=== PATIENT | female | born 1995 | race American Indian/Alaskan Native ===

== ENCOUNTER 2021-02-17 13:28 | Emergency (ER) | payer OTHER ==
[2021-02-17] MEDS ORDERED: Ondansetron 4 MG/2 ML SDV IVPUSH ONE (15:09)
[2021-02-17] MEDS ORDERED: Ketorolac 30 MG/ML SDV IVPUSH ONE (15:09)
[2021-02-17] MEDS ORDERED: cefTRIAXone 2 GM Vial IVPUSH ONE (15:09)
[2021-02-17] MEDS ORDERED: Iopamidol 755 Mg/ML 100 ML Bottle IV ONE (15:14)
--- NOTE | 2021-02-17 15:17 | EDM.PDOC ---
ED HPI GENERAL MEDICAL PROBLEM - General Chief Complaint: Abdominal Pain Stated Complaint: LOWER R ABD PAIN Time Seen by Provider: 02/17/21 13:30 Source of Information: Reports: Patient History Limitations: Reports: No Limitations - History of Present Illness INITIAL COMMENTS - FREE TEXT/NARRATIVE: c/o pain and R flank and RUQ x 36h pt with nagging pain that began after eating pizza for supper 2 nights ago initial in RLQ, then moved to RUQ yesterday, then with N today, did have V at midnight pain not severe, APAP did not help no freq, no dysuria no f/c/d ate pizza again last night which pt thought may have helped the pain had a moderate loose 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 2x, has 1 yo child and a SAB in 2017 had BC implant in LUE but had irreg menses and had it removed 6m ago, has begin monthly menses x 6m altho she is 1 wk late now no regular meds SH: does not work outside house Right Upper Abdomen Pain Score (Numeric/FACES): 6 - Related Data Allergies Allergy/AdvReac Type Severity Reaction Status Date / Time No Known Allergies Allergy Verified 02/17/21 13:42 Home Meds: Home Meds Ciprofloxacin HCl [Cipro] 500 mg PO BID #14 tablet 02/17/21 [Rx] Multivitamin 1 tab PO DAILY 02/17/21 [History] Past Medical History - Past Health History Medical/Surgical History: Denies Medical/Surgical History 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 Constitutional: Reports: Decreased Appetite. Denies: Fever, Chills HEENT: Reports: No Symptoms Respiratory: Reports: No Symptoms. Denies: Shortness of Breath, Cough Cardiovascular: Reports: No Symptoms Endocrine: Reports: No Symptoms GI/Abdominal: Reports: Abdominal Pain, Nausea, Vomiting : Reports: No Symptoms Musculoskeletal: Reports: No Symptoms Skin: Reports: No Symptoms Neurological: Reports: No Symptoms Psychiatric: Reports: No Symptoms Hematologic/Lymphatic: Reports: No Symptoms Immunologic: Reports: No Symptoms ED EXAM, GI/ABD - Physical Exam Exam: See Below Exam Limited By: No Limitations General Appearance: Alert, WD/WN, No Apparent Distress, Other (moves easily, resting on bed) Ears: Normal Canal, Hearing Grossly Normal Nose: Normal Inspection Throat/Mouth: Normal Inspection, Normal Lips, Normal Teeth Head: Atraumatic, Normocephalic Neck: Normal Inspection, Non-Tender. No: Lymphadenopathy (R), Lymphadenopathy (L) Respiratory/Chest: No Respiratory Distress, Lungs Clear, Normal Breath Sounds, Chest Non-Tender Cardiovascular: Regular Rate, Rhythm, No Edema, No Murmur GI/Abdominal Exam: Soft, No Distention, Other (mild tender along R colon and R lateral half of transverse colon, does not appear to have inc'd tender localized epigastrium/Morgan's point/flank/RLQ, no stool palpable, NT on L abd and suprapubic area, no CVAT, nl BS x 4, very soft) Back Exam: Normal Inspection, Full Range of Motion. No: CVA Tenderness (R), CVA Tenderness (L) Extremities: Non-Tender, No Pedal Edema Neurological: Alert, Oriented, CN II-XII Intact, Normal Cognition, No Motor/Sensory Deficits Psychiatric: Normal Affect, Normal Mood Skin Exam: Warm, Dry, Intact, Normal Color, No Rash Lymphatic: No Adenopathy Course - Vital Signs Last Recorded V/S: Last Vital Signs Temp 36.6 C 02/17/21 13:28 Pulse 84 02/17/21 16:00 Resp 20 02/17/21 16:00 BP 139/115 H 02/17/21 16:00 Pulse Ox 97 02/17/21 16:00 - Orders/Labs/Meds Orders: Active Orders 24 hr Category Date Time Status Abdomen Pelvis w Cont [CT] Stat Exams 02/17/21 15:09 Taken CULTURE URINE [RM] Stat Lab 02/17/21 13:43 Received Labs: Laboratory Tests 02/17/21 02/17/21 02/17/21 Range/Units 13:43 13:43 14:30 WBC 13.0 H (3.0-10.3) x10-3/uL RBC 4.55 (3.60-5.20) x10(6)uL Hgb 13.9 (11.4-15.5) g/dL Hct 42.0 (34.2-48.2) % MCV 92.5 (76.7-100.5) fL MCH 30.5 (23.9-33.9) pg MCHC 33.0 (31.9-34.8) g/dL RDW 12.9 (12.3-16.5) % Plt Count 428 (151-488) x10(3)uL MPV 7.9 (7.1-12.4) fL Neut % (Auto) 76.3 H (30.8-76.2) % Lymph % (Auto) 17.3 L (18.4-52.1) % [place] % (Auto) 5.2 (4.4-15.7) % Eos % (Auto) 0.5 L (0.6-8.1) % Baso % (Auto) 0.7 (0.2-1.5) % Neut # (Auto) 9.9 H (1.5-6.3) x10-3/uL Lymph # (Auto) 2.2 (1.0-4.4) x10-3/uL [place] # (Auto) 0.7 (0.3-1.0) x10-3/uL Eos # (Auto) 0.1 (0.0-0.8) x10-3/uL Baso # (Auto) 0.1 (0.0-0.1) x10-3/uL Sodium (135-145) mmol/L Potassium (3.5-5.3) mmol/L Chloride (100-110) mmol/L Carbon Dioxide (21-32) mmol/L BUN (7-18) mg/dL Creatinine (0.55-1.02) mg/dL Est Cr Clr Drug Dosing mL/min Estimated GFR (MDRD) (>60) BUN/Creatinine Ratio (9-20) Glucose (80-116) mg/dL Calcium (8.6-10.2) mg/dL Total Bilirubin (0.1-1.3) mg/dL AST (5-25) IU/L ALT (12-36) U/L Alkaline Phosphatase (56-112) IU/L C-Reactive Protein (0.5-0.9) mg/dL Total Protein (6.0-8.0) g/dL Albumin (3.5-5.2) g/dL Globulin g/dL Albumin/Globulin Ratio Urine Color Yellow (YELLOW) Urine Appearance Slightly cloudy (CLEAR) Urine pH 5.0 (5.0-6.5) Ur Specific [place] 1.020 (1.010-1.025) Urine Protein 30 H (NEGATIVE) mg/dL Urine Glucose (UA) Normal (NORMAL) mg/dL Urine Ketones Negative (NEGATIVE) mg/dL Urine Occult Blood Large H (NEGATIVE) Urine Nitrite Negative (NEGATIVE) Urine Bilirubin Negative (NEGATIVE) Urine Urobilinogen Normal (NEGATIVE) mg/dL Ur Leukocyte Esterase Small H (NEGATIVE) Urine RBC 30-40 H (0-5) Urine WBC 10-20 H (0-5) Ur Squamous Epith Cells Few H (NS,R,O) Urine Bacteria Moderate H (NS) Urine HCG, Qual Negative (NEGATIVE) 02/17/21 02/17/21 Range/Units 14:30 14:30 WBC (3.0-10.3) x10-3/uL RBC (3.60-5.20) x10(6)uL Hgb (11.4-15.5) g/dL Hct (34.2-48.2) % MCV (76.7-100.5) fL MCH (23.9-33.9) pg MCHC (31.9-34.8) g/dL RDW (12.3-16.5) % Plt Count (151-488) x10(3)uL MPV (7.1-12.4) fL Neut % (Auto) (30.8-76.2) % Lymph % (Auto) (18.4-52.1) % [place] % (Auto) (4.4-15.7) % Eos % (Auto) (0.6-8.1) % Baso % (Auto) (0.2-1.5) % Neut # (Auto) (1.5-6.3) x10-3/uL Lymph # (Auto) (1.0-4.4) x10-3/uL [place] # (Auto) (0.3-1.0) x10-3/uL Eos # (Auto) (0.0-0.8) x10-3/uL Baso # (Auto) (0.0-0.1) x10-3/uL Sodium 139 (135-145) mmol/L Potassium 4.6 (3.5-5.3) mmol/L Chloride 103 (100-110) mmol/L Carbon Dioxide 25 (21-32) mmol/L BUN 9 (7-18) mg/dL Creatinine 0.8 (0.55-1.02) mg/dL Est Cr Clr Drug Dosing 88.15 mL/min Estimated GFR (MDRD) > 60 (>60) BUN/Creatinine Ratio 11.3 (9-20) Glucose 105 (80-116) mg/dL Calcium 8.6 (8.6-10.2) mg/dL Total Bilirubin 0.5 (0.1-1.3) mg/dL AST 36 H (5-25) IU/L ALT 43 H (12-36) U/L Alkaline Phosphatase 124 H (56-112) IU/L C-Reactive Protein 1.2 H (0.5-0.9) mg/dL Total Protein 8.3 H (6.0-8.0) g/dL Albumin 3.9 (3.5-5.2) g/dL Globulin 4.4 g/dL Albumin/Globulin Ratio 0.9 Urine Color (YELLOW) Urine Appearance (CLEAR) Urine pH (5.0-6.5) Ur Specific [place] (1.010-1.025) Urine Protein (NEGATIVE) mg/dL Urine Glucose (UA) (NORMAL) mg/dL Urine Ketones (NEGATIVE) mg/dL Urine Occult Blood (NEGATIVE) Urine Nitrite (NEGATIVE) Urine Bilirubin (NEGATIVE) Urine Urobilinogen (NEGATIVE) mg/dL Ur Leukocyte Esterase (NEGATIVE) Urine RBC (0-5) Urine WBC (0-5) Ur Squamous Epith Cells (NS,R,O) Urine Bacteria (NS) Urine HCG, Qual (NEGATIVE) Meds: Medications Discontinued Medications Generic Name Dose Route Start Last Admin Trade Name Freq PRN Reason Stop Dose Admin Ceftriaxone Sodium 1 gm 02/17/21 15:09 02/17/21 15:50 Ceftriaxone 2 Gm Vial IVPUSH 02/17/21 15:10 1 gm ONETIME ONE Administration Sodium Chloride 1,000 mls @ 999 mls/hr 02/17/21 15:19 02/17/21 15:50 Normal Saline IV 02/17/21 16:19 999 mls/hr .BOLUS ONE Administration Iopamidol 100 ml 02/17/21 15:14 02/17/21 15:33 Iopamidol 755 Mg/Ml 100 Ml Bottle IV 02/17/21 15:15 100 ml . DIRECTED ONE Administration Ketorolac Tromethamine 30 mg 02/17/21 15:09 02/17/21 15:50 Ketorolac 30 Mg/Ml Sdv IVPUSH 02/17/21 15:10 30 mg ONETIME ONE Administration Ondansetron HCl 4 mg 02/17/21 15:09 02/17/21 15:50 Ondansetron 4 Mg/2 Ml Sdv IVPUSH 02/17/21 15:10 4 mg ONETIME ONE Administration - Re-Assessments/Exams Free Text/Narrative Re-Assessment/Exam: 02/17/21 15:17 pt with UTI also with inc'd wbc/crp/TP/LFTs pyelo/GB disease/appendicitis are all in the differential will obtain CT abd/pelvis with IV contrast, explained to pt who agreed to proceed 02/17/21 17:10 CT abd/pelvis with stranding of prox 1/3rd of R ureter, most c/w early pyelo, clinically is hatch tender over R kidney but not in RUQ after Toradol 30 mg IV little stool in GI tract will begin cipro tomorrow as ceftriaxone given today, doing well Departure - Departure Time of Disposition: 17:05 Disposition: Home, Self-Care 01 Condition: Good Clinical Impression: Pyelonephritis - Discharge Information *PRESCRIPTION DRUG MONITORING PROGRAM REVIEWED*: Not Applicable *COPY OF PRESCRIPTION DRUG MONITORING REPORT IN PATIENT NU: Not Applicable Prescriptions: Ciprofloxacin HCl [Cipro] 500 mg PO BID #14 tablet Instructions: Pyelonephritis, Adult Referrals: PCP,None [Primary Care Provider] - Forms: ED Department Discharge Additional Instructions: For pain and inflammation, take ibuprofen 200 mg 3 tabs and acetaminophen 500 mg 2 tabs 4 times a day for 2 days. For infection, take ciprofloxacin 500 mg 1 tab 2 times a day for 7 days beginning tomorrow. Increase fluids. Get adequate rest for the next 2 days. See your doctor in 7-10 days for further recommendations. However, see your doctor or return to Emergency Department if you are not feeling much better in the next 1-2 days. Sepsis Event Note (ED) - Evaluation Sepsis Screening Result: No Definite Risk - Focused Exam Vital Signs: Vital Signs Temp Pulse Resp BP Pulse Ox 02/17/21 16:00 84 20 139/115 H 97 02/17/21 15:49 91 20 105/85 100 02/17/21 14:46 68 20 127/95 H 100 02/17/21 14:10 67 20 137/94 H 100 02/17/21 13:28 36.6 C 94 20 143/101 H 98 - My Orders Last 24 Hours: My Active Orders 02/17/21 13:43 CULTURE URINE [RM] Stat 02/17/21 15:09 Abdomen Pelvis w Cont [CT] Stat - Assessment/Plan Last 24 Hours: My Active Orders 02/17/21 13:43 CULTURE URINE [RM] Stat 02/17/21 15:09 Abdomen Pelvis w Cont [CT] Stat
[2021-02-17] MEDS ORDERED: Sodium Chloride 0.9% 1,000 ML IV ONE (15:19)
== END 2021-02-17 17:15 | disposition home or self-care (01) ==
LOC: FB.ED 13:28
DX: N12 Tubulo-interstitial nephritis, not specified as acute or chronic (principal)
CPT/HCPCS: 36415; 74177; 80053; 81001; 81025; 85025; 86140; 87086; 87088; 87186; 96374; 96375; 99284; J0696; J1885; J2405; J7030; Q9967

== ENCOUNTER 2021-04-18 15:56 | Emergency (ER) | payer OTHER ==
[2021-04-18] MEDS ORDERED: Ondansetron 4 MG/2 ML SDV IVPUSH ONE (16:19)
[2021-04-18] MEDS ORDERED: Sodium Chloride 0.9% 1,000 ML IV ONE ×2 (16:19→17:38)
--- NOTE | 2021-04-18 16:23 | EDM.PDOC ---
ED HPI GENERAL MEDICAL PROBLEM - General Stated Complaint: COVID ??? Time Seen by Provider: 04/18/21 16:05 Source of Information: Reports: Patient History Limitations: Reports: No Limitations - History of Present Illness INITIAL COMMENTS - FREE TEXT/NARRATIVE: c/o n/v, dizzy drank whiskey till she passed out last night, not able to keep anything done today, she requested IVF, does have HR 105 no pain, is dizzy here with sig other and son, son has had URI x 1w, had another child at home - Related Data Allergies Allergy/AdvReac Type Severity Reaction Status Date / Time No Known Allergies Allergy Verified 02/17/21 13:42 Home Meds: Home Meds Multivitamin 1 tab PO DAILY 02/17/21 [History] cephALEXin [Cephalexin] 250 mg PO TID #9 capsule 04/18/21 [Rx] Past Medical History - Past Health History Medical/Surgical History: Denies Medical/Surgical History 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: , 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: Social & Family History - Family History Family Medical History: No Pertinent Family History - Caffeine Use Caffeine Use: Reports: Soda, Tea ED ROS GENERAL - Review of Systems Review Of Systems: See Below Constitutional: Reports: No Symptoms HEENT: Reports: No Symptoms Respiratory: Reports: No Symptoms Cardiovascular: Reports: No Symptoms Endocrine: Reports: No Symptoms GI/Abdominal: Reports: Nausea, Vomiting : Reports: No Symptoms Musculoskeletal: Reports: No Symptoms Skin: Reports: No Symptoms Neurological: Reports: Dizziness Psychiatric: Reports: No Symptoms Hematologic/Lymphatic: Reports: No Symptoms Immunologic: Reports: No Symptoms ED EXAM, GENERAL - Physical Exam Exam: See Below Exam Limited By: No Limitations General Appearance: Alert, WD/WN, No Apparent Distress, Other (alert, pleasant, good eye contact, not ill, sitting, holding son) Eye Exam: Bilateral Eye: EOMI, Normal Inspection, PERRL Ears: Normal TMs Nose: Normal Inspection, Normal Mucosa, No Blood Throat/Mouth: Normal Inspection, Normal Lips, Normal Teeth, Normal Gums, Normal Oropharynx, Normal Voice, No Airway Compromise Head: Atraumatic, Normocephalic Neck: Normal Inspection, Supple, Non-Tender, Full Range of Motion. No: Lymphadenopathy (R), Lymphadenopathy (L) Respiratory/Chest: No Respiratory Distress, Lungs Clear, Normal Breath Sounds, No Accessory Muscle Use, Chest Non-Tender Cardiovascular: Regular Rate, Rhythm, No Edema, No Murmur GI/Abdominal: Soft, Non-Tender, No Distention Back Exam: Normal Inspection, Full Range of Motion, NT Extremities: Normal Inspection, Normal Range of Motion, Non-Tender, No Pedal Edema Neurological: Alert, Oriented, CN II-XII Intact, Normal Cognition, Normal Gait, No Motor/Sensory Deficits Psychiatric: Normal Affect, Normal Mood Skin Exam: Warm, Dry, Intact, Normal Color, No Rash Lymphatic: No Adenopathy Course - Vital Signs Last Recorded V/S: Last Vital Signs Temp 36.9 C 04/18/21 16:37 Pulse 105 H 04/18/21 16:37 Resp 16 04/18/21 16:37 BP 147/86 H 04/18/21 16:37 Pulse Ox 97 04/18/21 16:37 - Orders/Labs/Meds Orders: Active Orders 24 hr Category Date Time Status CULTURE URINE [RM] Stat Lab 04/18/21 17:37 Ordered Sodium Chloride 0.9% [Normal Saline] 1,000 ml Med 04/18/21 17:38 Ordered IV .BOLUS Medication Orders Sodium Chloride (Normal Saline) 1,000 mls @ 999 mls/hr IV .BOLUS ONE Stop: 04/18/21 18:38 Last Admin: 04/18/21 17:43 Dose: 999 mls/hr Documented by: ROSA Labs: Laboratory Tests 04/18/21 04/18/21 04/18/21 Range/Units 17:15 17:15 17:15 WBC 14.6 H (3.0-10.3) x10-3/uL RBC 4.23 (3.60-5.20) x10(6)uL Hgb 12.7 (11.4-15.5) g/dL Hct 39.0 (34.2-48.2) % MCV 92.4 (76.7-100.5) fL MCH 30.1 (23.9-33.9) pg MCHC 32.6 (31.9-34.8) g/dL RDW 13.7 (12.3-16.5) % Plt Count 327 (151-488) x10(3)uL MPV 7.2 (7.1-12.4) fL Neut % (Auto) 80.7 H (30.8-76.2) % Lymph % (Auto) 13.6 L (18.4-52.1) % [place] % (Auto) 4.4 (4.4-15.7) % Eos % (Auto) 0.3 L (0.6-8.1) % Baso % (Auto) 1.0 (0.2-1.5) % Neut # (Auto) 11.8 H (1.5-6.3) x10-3/uL Lymph # (Auto) 2.0 (1.0-4.4) x10-3/uL [place] # (Auto) 0.6 (0.3-1.0) x10-3/uL Eos # (Auto) 0.0 (0.0-0.8) x10-3/uL Baso # (Auto) 0.1 (0.0-0.1) x10-3/uL Sodium 138 (135-145) mmol/L Potassium 3.9 (3.5-5.3) mmol/L Chloride 104 (100-110) mmol/L Carbon Dioxide 24 (21-32) mmol/L BUN 6 L (7-18) mg/dL Creatinine 0.6 (0.55-1.02) mg/dL Est Cr Clr Drug Dosing 102.06 mL/min Estimated GFR (MDRD) > 60 (>60) BUN/Creatinine Ratio 10.0 (9-20) Glucose 91 (80-116) mg/dL Calcium 7.4 L (8.6-10.2) mg/dL Total Bilirubin 0.6 (0.1-1.3) mg/dL AST 21 D (5-25) IU/L ALT 40 H (12-36) U/L Alkaline Phosphatase 118 H (56-112) IU/L C-Reactive Protein 1.0 H (0.5-0.9) mg/dL Total Protein 7.3 (6.0-8.0) g/dL Albumin 3.5 (3.5-5.2) g/dL Globulin 3.8 g/dL Albumin/Globulin Ratio 0.9 Urine Color (YELLOW) Urine Appearance (CLEAR) Urine pH (5.0-6.5) Ur Specific [place] (1.010-1.025) Urine Protein (NEGATIVE) mg/dL Urine Glucose (UA) (NORMAL) mg/dL Urine Ketones (NEGATIVE) mg/dL Urine Occult Blood (NEGATIVE) Urine Nitrite (NEGATIVE) Urine Bilirubin (NEGATIVE) Urine Urobilinogen (NEGATIVE) mg/dL Ur Leukocyte Esterase (NEGATIVE) Urine RBC (0-5) Urine WBC (0-5) Ur Squamous Epith Cells (NS,R,O) Urine Bacteria (NS) Urine HCG, Qual (NEGATIVE) 04/18/21 04/18/21 Range/Units 17:22 17:22 WBC (3.0-10.3) x10-3/uL RBC (3.60-5.20) x10(6)uL Hgb (11.4-15.5) g/dL Hct (34.2-48.2) % MCV (76.7-100.5) fL MCH (23.9-33.9) pg MCHC (31.9-34.8) g/dL RDW (12.3-16.5) % Plt Count (151-488) x10(3)uL MPV (7.1-12.4) fL Neut % (Auto) (30.8-76.2) % Lymph % (Auto) (18.4-52.1) % [place] % (Auto) (4.4-15.7) % Eos % (Auto) (0.6-8.1) % Baso % (Auto) (0.2-1.5) % Neut # (Auto) (1.5-6.3) x10-3/uL Lymph # (Auto) (1.0-4.4) x10-3/uL [place] # (Auto) (0.3-1.0) x10-3/uL Eos # (Auto) (0.0-0.8) x10-3/uL Baso # (Auto) (0.0-0.1) x10-3/uL Sodium (135-145) mmol/L Potassium (3.5-5.3) mmol/L Chloride (100-110) mmol/L Carbon Dioxide (21-32) mmol/L BUN (7-18) mg/dL Creatinine (0.55-1.02) mg/dL Est Cr Clr Drug Dosing mL/min Estimated GFR (MDRD) (>60) BUN/Creatinine Ratio (9-20) Glucose (80-116) mg/dL Calcium (8.6-10.2) mg/dL Total Bilirubin (0.1-1.3) mg/dL AST (5-25) IU/L ALT (12-36) U/L Alkaline Phosphatase (56-112) IU/L C-Reactive Protein (0.5-0.9) mg/dL Total Protein (6.0-8.0) g/dL Albumin (3.5-5.2) g/dL Globulin g/dL Albumin/Globulin Ratio Urine Color Yellow (YELLOW) Urine Appearance Clear (CLEAR) Urine pH 6.0 (5.0-6.5) Ur Specific [place] 1.015 (1.010-1.025) Urine Protein Negative (NEGATIVE) mg/dL Urine Glucose (UA) Normal (NORMAL) mg/dL Urine Ketones 50 H (NEGATIVE) mg/dL Urine Occult Blood Large H (NEGATIVE) Urine Nitrite Positive H (NEGATIVE) Urine Bilirubin Negative (NEGATIVE) Urine Urobilinogen Normal (NEGATIVE) mg/dL Ur Leukocyte Esterase Negative (NEGATIVE) Urine RBC 0-5 (0-5) Urine WBC 5-10 H (0-5) Ur Squamous Epith Cells Few H (NS,R,O) Urine Bacteria Moderate H (NS) Urine HCG, Qual Negative (NEGATIVE) Meds: Medications Generic Name Dose Route Start Last Admin Trade Name Dajuanq PRN Reason Stop Dose Admin Sodium Chloride 1,000 mls @ 999 mls/hr 04/18/21 17:38 04/18/21 17:43 Normal Saline IV 04/18/21 18:38 999 mls/hr .BOLUS ONE Administration Discontinued Medications Generic Name Dose Route Start Last Admin Trade Name Freq PRN Reason Stop Dose Admin Cephalexin 250 mg 04/18/21 18:30 04/18/21 18:35 Cephalexin 250 Mg Cap PO 04/18/21 18:31 250 mg ONETIME ONE Administration Sodium Chloride 1,000 mls @ 999 mls/hr 04/18/21 16:19 04/18/21 16:27 Normal Saline IV 04/18/21 17:19 999 mls/hr .BOLUS ONE Administration Ondansetron HCl 4 mg 04/18/21 16:19 04/18/21 16:28 Ondansetron 4 Mg/2 Ml Sdv IVPUSH 04/18/21 16:20 4 mg ONETIME ONE Administration - Re-Assessments/Exams Free Text/Narrative Re-Assessment/Exam: 04/18/21 17:15 pt reports she is breaking up with the father of her child, which has been very stressful, the father came in with pt and their child 04/18/21 18:34 given 2 liter NS as u/a showed 50 mg/dl ketones u/a with moderate bacteria but no WBCs now, UC 2m ago with E coli sensitive to anything, will change antbx and tx with cephalexin x 3d, suspect reinfection mild increase wbc and crp of uncertain clinical sig no localizing infection other than UTI pt still not feeling back to baseline at time of d/c father of baby lives in the same household as "he has nowhere else to go" and will be able to watch both children this evening Departure - Departure Time of Disposition: 18:29 Disposition: Home, Self-Care 01 Condition: Good Clinical Impression: Moderate dehydration, Ketonuria, UTI (urinary tract infection), Nausea - Discharge Information *PRESCRIPTION DRUG MONITORING PROGRAM REVIEWED*: Not Applicable *COPY OF PRESCRIPTION DRUG MONITORING REPORT IN PATIENT NU: Not Applicable Prescriptions: cephALEXin [Cephalexin] 250 mg PO TID #9 capsule Instructions: Alcohol Use Disorder, Nausea, Adult, Dehydration, Adult Referrals: PCP,None [Primary Care Provider] - Additional Instructions: For bladder infection, take cephalexin 250 mg 1 tab 3 times a day for 3 days. Increase fluids. For nausea, take ondansetron ODT 4 mg 1 tab under the tongue every 6 hours as needed. Rest this evening. No alcohol. See your doctor in 4 days for further recommendations. Sepsis Event Note (ED) - Focused Exam Vital Signs: Vital Signs Temp Pulse Resp BP Pulse Ox 04/18/21 16:37 36.9 C 105 H 16 147/86 H 97 - My Orders Last 24 Hours: My Active Orders 04/18/21 17:37 CULTURE URINE [RM] Stat 04/18/21 17:38 Sodium Chloride 0.9% [Normal Saline] 1,000 ml IV .BOLUS - Assessment/Plan Last 24 Hours: My Active Orders 04/18/21 17:37 CULTURE URINE [RM] Stat 04/18/21 17:38 Sodium Chloride 0.9% [Normal Saline] 1,000 ml IV .BOLUS
[2021-04-18] MEDS ORDERED: Cephalexin 250 MG Cap PO ONE (18:30)
== END 2021-04-18 18:49 | disposition home or self-care (01) ==
LOC: FB.ED 15:56
DX: E86.0 Dehydration (principal); N39.0 Urinary tract infection, site not specified; R82.4 Acetonuria; R11.2 Nausea with vomiting, unspecified
CPT/HCPCS: 36415; 80053; 81001; 81025; 85025; 86140; 87086; 87088; 87186; 96374; 99284; A9270; J2405; J7030

== ENCOUNTER 2021-10-24 14:01 | Emergency (ER) | payer MEDICAID, OTHER ==
[2021-10-24] MEDS ORDERED: Sodium Chloride 0.9% 10 ML Syringe FLUSH PRN (14:20)
[2021-10-24] MEDS ORDERED: Ondansetron 4 MG/2 ML SDV IVPUSH ONE (14:22)
[2021-10-24] MEDS ORDERED: Ketorolac 30 MG/ML SDV IVPUSH ONE (14:22)
[2021-10-24] MEDS ORDERED: Sodium Chloride 0.9% 1,000 ML IV SCH (14:30)
[2021-10-24] MEDS ORDERED: Iopamidol 755 Mg/ML 100 ML Bottle IV ONE (15:46)
[2021-10-24] MEDS ORDERED: Morphine 2 MG/ML SYRINGE IVPUSH STA (16:11)
[2021-10-24] MEDS ORDERED: HYDROmorphone 2 MG/ML SDV IVPUSH STA (16:30)
[2021-10-24] MEDS ORDERED: Piperacillin/Tazobactam 4.5 GM in Sodium Chloride 0.9% 100 ML IV STA (17:06)
== END 2021-10-24 19:20 ==
LOC: FB.ED 14:01
DX: N39.0 Urinary tract infection, site not specified (principal); K35.33 Acute appendicitis with perforation, localized peritonitis, and gangrene, with abscess; N12 Tubulo-interstitial nephritis, not specified as acute or chronic; Z20.822 Contact with and (suspected) exposure to COVID-19
CPT/HCPCS: 36415; 71045; 74178; 80053; 81001; 81025; 82150; 83690; 85025; 87086; 87088; 87186; 87635; 96365; 96375; 99285; J1170; J1885; J2270; J2405; J2543; J7030; Q9967; U0002